=== PATIENT | male | born 1945 | race Caucasian/White ===

== ENCOUNTER → 2017-02-28 | Outpatient (CLI) | payer OTHER ==
[2017-02-28 12:58] LABS: BASOPHILS # (AUTO) 0.03 10*3/UL; BASOPHILS % (AUTO) 0.4 % (0-1); EOSINOPHILS # (AUTO) 0.09 10*3/UL; EOSINOPHILS % (AUTO) 1.3 % (0-8); HEMATOCRIT 46.7 % (42.0-52.0); HEMOGLOBIN 15.4 g/dL (14.0-18.0); LYMPHOCYTES # (AUTO) 1.73 10*3/uL; MEAN CORPUSCULAR HEMOGLOBIN 31.8 PG (27-31); MEAN CORPUSCULAR VOLUME 96.3 FL (80-90); MEAN PLATELET VOLUME 11.7 FL (7.4-12.2); MONOCYTES # (AUTO) 0.81 10*3/UL (0.3-0.8); MONOCYTES % (AUTO) 11.3 % (5-15); NEUTROPHILS # (AUTO) 4.49 10*3/UL; NEUTROPHILS % (AUTO) 62.6 % (50-80); RED BLOOD COUNT 4.85 10^6/uL (4.70-6.10)
[2017-02-28 13:00] LABS: BILIRUBIN,URINE NEGATIVE (NEG); CLARITY,URINE CLEAR (CLEAR); COLOR,URINE YELLOW; GLUCOSE, URINE (UA) NEGATIVE (NEG); NITRATE,URINE NEGATIVE (NEG); OCCULT BLOOD,URINE NEGATIVE (NEG); PH,URINE 6.5 (5.0-8.5); PROTEIN,URINE NEGATIVE (NEG); UROBILINOGEN,URINE 0.2 mg/dL (0.2)
[2017-02-28 13:01] LABS: PLATELET MORPHOLOGY COMMENT NORMAL MORPHOLOGY (NORM); RBC MORPHOLOGY COMMENT NORMAL MORPHOLOGY (NORM); WBC MORPHOLOGY COMMENT NORMAL MORPHOLOGY (NORM)
[2017-02-28 13:04] LABS: CHOL/HDL RATIO 4.15 RATIO (0-4.0); LDL CHOLESTEROL,CALCULATED 117.6 mg/dL
[2017-02-28 13:04] LABS: CALCIUM 9.1 mg/dL (8.7-10.7); SERUM ALBUMIN 3.9 g/dL (3.5-4.8)
[2017-02-28 13:08] LABS: RBC,URINE 0-1 /hpf; URINE SAMPLE TYPE VOIDED SPECIMEN; WBC,URINE 0-1
[2017-02-28 13:22] LABS: VITAMIN D 25-HYDROXY 44.4 NG/ML (30-100)
== END ==
LOC: MOB LAB 10:50
DX: I10 Essential (primary) hypertension (principal); E55.9 Vitamin D deficiency, unspecified; R97.20 Elevated prostate specific antigen [PSA]; H90.3 Sensorineural hearing loss, bilateral; E29.1 Testicular hypofunction
CPT/HCPCS: 36415; 80053; 80061; 81001; 82306; 84153; 84443; 85025; 99213; G0463